=== PATIENT | female | born 2005 | race Two or more races ===

== ENCOUNTER 2024-12-27 19:47 | Emergency (ER) | payer MEDICAID, SELFPAY ==
[2024-12-27 19:48] VITALS: BMI 25.4
--- NOTE | 2024-12-27 19:49 | EKG_ITS ---
[facility] Test Date: 2024-12-27 Pat Name: ROQUE CASSIDY Department: Room: - Gender: Female Avp: : 2005 Requested By: ED Temporary Provider Order Number: [id number] Reading MD: ED Temporary Provider Measurements Intervals [place] Rate: 82 P: 46 NE: 132 QRS: 74 QRSD: 89 T: 69 QT: 360 QTc: 422 Interpretive Statements SINUS RHYTHM WITH SINUS ARRHYTHMIA NONSPECIFIC ST ELEVATION [0.05+ mV ST ELEVATION] No previous ECG available for comparison /store/S0/[id number].pdf
[2024-12-27 20:14] VITALS: BP 117/73; PULSE 87; RESP 18; TEMP 36.8; O2SAT 98
--- NOTE | 2024-12-27 20:27 | PD.EDCHEST ---
ED Chest Pain RME/HPI General Chief Complaint: Chest Pain Stated Complaint: CHEST PAIN X 2DAYS Time Seen by Provider: 12/27/24 20:25 Source: patient Arrival date/time: 12/27/24 19:47 Mode of arrival: ambulatory Limitations: no limitations RME / HPI RME / HPI narrative: 19-year-old female presents to the ED with a complaint of chest pain with shortness of breath that began this last Wednesday. Onset (ago): day(s) (3 days) Duration: constant Onset: during rest and during exertion Severity: moderate Severity scale (1-10): 5 Related Data On Oral Contraceptives: No Previous Rx's ?Medication ?Instructions ?Recorded meloxicam 7.5 mg tablet 7.5 mg PO QDAY #10 tabs 06/21/22 azithromycin 250 mg tablet See Rx Instructions PO .COMPLEX #6 12/27/24 (Zithromax Z-Esau) tabs Allergies Allergy/AdvReac Type Severity Reaction Status Date / Time No Known Allergies Allergy Verified 10/14/22 16:16 Review of Systems Constitutional Constitutional: Reports system reviewed and no additional complaints, except as documented Eyes Eyes: Reports system reviewed and no additional complaints, except as documented, Denies dry eyes, Denies exophthalmos and Reports floaters Cardiovascular Cardiovascular: Denies chest pain with activity and Denies claudication ED Exam General Limitations: Present no limitations General appearance: Present alert and in no apparent distress Head Head exam: Present atraumatic Eye Eye exam: Present normal appearance, PERRL and EOMI ENT ENT exam: Present normal exam, normal oropharynx and mucous membranes moist Neck Neck exam: Present normal inspection, full ROM and trachea midline Chest Chest inspection: Present normal inspection and symmetric chest wall rise Respiratory Respiratory exam: Present normal lung sounds bilaterally Cardiovascular Cardiovascular exam: Present regular rate, normal rhythm and normal heart sounds Abdominal Exam Abdominal exam: Present soft and normal bowel sounds Extremities Exam Extremities exam: Present normal inspection and full ROM Back Exam Back exam: Present normal inspection and full ROM Neurological Exam Neurological exam: Present alert, oriented X3 and CN II-XII intact Psychiatric Psychiatric exam: Present normal affect and normal mood Skin Skin exam: Present warm, dry, intact and normal color Course Course Course Narrative: CBC, CMP, troponin, BNP, EKG, chest x-ray Quality Measures none Orders Category Date Time Status EKG (ED ONLY) *Do not use* NOW Care 12/27/24 19:49 Completed CXR2 [XR chest 2V] Stat Exams 12/27/24 20:35 Completed EKG (ED Only) Stat Exams 12/27/24 19:49 Ordered BNP [B-Type Natriuretic Peptide] Stat Lab 12/27/24 21:20 Completed CBC Stat Lab 12/27/24 21:20 Completed CMP [Comprehensive Metabolic Panel] Stat Lab 12/27/24 21:20 Completed Troponin I Stat Lab 12/27/24 21:20 Completed Aspirin Med 12/27/24 20:38 Discontinued 325 mg PO X1 ONE Done Vital Signs Vital signs: Vital Signs Temperature 98.2 F 12/27/24 20:14 Pulse Rate 87 12/27/24 20:14 Respiratory Rate 18 12/27/24 20:14 Blood Pressure 117/73 12/27/24 20:14 Pulse Oximetry (%) 98 12/27/24 20:14 Oxygen Delivery Method Room Air 12/27/24 20:14 Pulse ox room air is 98% Chest Pain MDM Narrative MDM Narrative:: Patient will be informed that chest x-ray reveals possible early pneumonia. CBC CMP troponin all returned well within her normal limits. Patient will be sent home with a prescription for Zithromax and ibuprofen. She has to follow-up primary care physician within a week of today's visit. If she has worse or not better she may return here or follow-up with her primary. Patient data External records reviewed:: Other (specify) Clinical information provided by:: none Social determinants that could affect healthcare access:: none Patient has the following chronic illnesses:: No chronic disease How is presenting disease/condition affected by chronic disease/condition?: no chronic disease Evaluation data The following diagnostics were reviewed and interpreted by me:: other (specify) Lab and/or radiology exams considered but not ordered:: N/A Interpretation Summary: Pneumonia Medications / Prescriptions Medications or Prescriptions considered but not ordered:: N/A Medication administrations:: Medication Administration History Discontinued Medications Aspirin (Aspirin 325 Mg Tablet) 325 mg PO X1 ONE Stop: 12/27/24 20:39 Last Admin: 12/27/24 21:08 Dose: 325 mg Documented By: OA Done Consultations Consultation(s) initiated? (list below): No Diagnosis Chest Pain Differential Diagnosis: fracture of rib, pneumothorax, stable angina, unstable angina pectoris and atypical chest pain Most likely diagnosis given after review of the tests above:: Pneumonia Admission Indicated Admission indicated?: not indicated Admission Request Was there a request for admission?: No Disposition Plan Disposition Plan: Discharge Discharge Attestation Discharge Attestation: The patient and all family members were given an opportunity to ask questions and understood the discharge instructions. Discharge instructions specifically effects, indications for sooner follow up or return to the emergency department, and the expected course of current diagnosis. Patient condition: Stable Discharge Plan Plan Patient Disposition: HOME (Self Care) Discharge Disposition comment: Discharge in no apparent distress Patient condition on transfer: Stable Prescriptions/Referrals Prescriptions/Med Rec: New azithromycin [Zithromax Z-Esau] 250 mg tablet See Rx Instructions .ROUTE .COMPLEX Qty: 6 0RF Rx Instructions: For 250 mg dose pack: take 500 mg today (day 1), then 250 mg for 4 days (days 2-5) No Action meloxicam 7.5 mg tablet 7.5 mg PO QDAY Qty: 10 0RF Referrals: Reza Phillips MD [Primary Care Provider] - In 1 week Problem List Clinical Impression: Pneumonia Impression comment: Patient discharged in no apparent distress Patient/Caregiver Discharge Instructions Discharge Activity: activity as tolerated Education Materials: Preventing Pneumonia Print Language: Pakistani Stand Alone Forms: Velma Award Info., Patient Portal Info Letter KENNY/NIKA Supervising Physician LOUIS Supervising Physician: Lyala
--- NOTE | 2024-12-27 20:35 | XR_ITS ---
Examination: PA and lateral chest 2 views TECHNIQUE: Upright PA and lateral chest 2 views Information: ,025, 0 hours INDICATIONS: Chest pain beginning 2 days ago. FINDINGS: Normal heart size Minimal parenchymal opacity in the right upper Left lung clear IMPRESSION: Suspicious for early right upper lobe pneumonia
[2024-12-27] MEDS: Aspirin 325 MG TABLET PO (21:08)
[2024-12-27 21:47] LABS: Basophils # (Auto) 0.1 Thou/mm3 (0.0-0.2); Basophils % (Auto) 1 % (0-2.5); Eosinophils # (Auto) 0.1 Thou/mm3 (0.0-0.5); Eosinophils % (Auto) 1 % (0-10); Hemoglobin 12.9 g/dL (12.0-16.0); Immature Granulocytes % (Auto) 0 % (0-0); Immature Granulocytes Auto 0.02 Thou/mm3 (0.00-0.00); Lymphocytes # (Auto) 2.8 Thou/mm3 (1.0-4.8); Lymphocytes % (Auto) 26 % (10-50); Mean Corpuscular HGB Conc 34.9 g/dl (31.0-37.0); Mean Corpuscular Hemoglobin 29.2 pg (25.0-35.0); Mean Corpuscular Volume 84 fL (80-100); Monocytes # (Auto) 0.5 Thou/mm3 (0.0-0.8); Monocytes % (Auto) 5 % (0-12); Neutrophils # (Auto) 7.2 Thou/mm3 (1.8-7.7); Neutrophils % (Auto) 67 % (37-80); Nucleated Red Blood Cell % 0 /100 WBC (0); Platelet Count 301 Thou/mm3 (140-440); RDW Standard Deviation 37.1 fL (36.4-46.3); Red Blood Count 4.42 Miln/mm3 (4.00-5.20); White Blood Count 10.7 Thou/mm3 (4.5-11.0)
[2024-12-27 22:00] LABS: B-Type Natriuretic Peptide < 20 pg/mL (0-100)
[2024-12-27 22:02] LABS: Alanine Aminotransferase 14 U/L (10-49); Albumin, Serum 4.6 gm/dL (3.5-5.0); Albumin/Globulin Ratio 1.5 (1.2-2.2); Alkaline Phosphatase 106 U/L (46-116); Anion Gap 11 (7-16); Aspartate Amino Transferase 14 U/L (0-34); BUN/Creatinine Ratio 11 Ratio (12-20); Bilirubin,Total 0.2 mg/dL (0.3-1.2); Blood Urea Nitrogen 9 mg/dL (9-23); Calcium 10.2 mg/dL (8.3-10.6); Calcium (Corrected) 10.2 mg/dL (8.5-10.1); Carbon Dioxide 26.2 mMol/L (20.0-31.0); Chloride 102 mMol/L (98-107); Creatinine (Component) 0.8 mg/dL (0.6-1.3); Estimated Creatinine Clearance 90.1 mL/min (>60); Glucose 105 mg/dL (74-106); Osmolality,Calculated 276 (275-295); Potassium 3.4 mMol/L (3.4-5.1); Sodium 139 mMol/L (136-145); Total Protein 7.6 gm/dL (5.7-8.2); Troponin I < 0.002 ng/mL (0.0-0.045); eGFR > 60 See Note
[2024-12-27 23:15] VITALS: BP 105/72; PULSE 75; RESP 18; TEMP 36.2; O2SAT 97
== END 2024-12-27 23:59 | disposition home or self-care (01) ==
PROVIDERS: Physician Assistant; Emergency Provider Emergency Medicine; PCP Student in an Organized Health Care Education/Training Program
DX: J18.9 Pneumonia, unspecified organism (principal); I49.8 Other specified cardiac arrhythmias
CPT/HCPCS: 36415; 71046; 80053; 83880; 84484; 85025; 93005; 99283; A9270